=== PATIENT | male | born 1940 | race Caucasian/White ===

== ENCOUNTER 2017-02-20 06:27 | Day surgery (SDC) | payer MEDICARE, OTHER ==
[~2017-02-20] VITALS: Ht 180.3 cm; Wt 88.5 kg
[~2017-02-20 06:27] MED LIST: ALLOPURINOL300 MG PO; AMLODIPINE10 MG OR; ASPIRIN ADULT L81 M1 PO; ASPIRIN81 MG PO; AVELOX400 MG PO; AZITHROMYCIN500 MG PO; CARDIZEM CD240 MG PO; CHERATUSSIN OR; CIPROFLOXACN250 MG PO; COLCHICINE0.6 M2 PO; COREG12.5 MG PO; COREG25 MG PO; COUMADIN1 MG PO; COUMADIN5 MG PO; COUMADIN7.5 MG PO; DIGOXIN0.25 MG PO; DILAUDID 2MG2 MG/TA1 PO; DIOVAN HCT160 MG/25 OR; ELIQUIS5 MG PO; FLOMAX0.4 M1 PO; FLUARIX QUADRIV1 IN2 IM; FLUARIX QUADRIV1 INJ IM; FLUZONE SPLT1 M1 IM; FUROSEMIDE20 MG PO; HYDROCHLOROT25 MG PO; KLOR-CON 1010 ME1 PO; LASIX 20 MG TAB20 MG PO; LASIX 40 MG40 MG/TAB PO; LIPITOR20 MG PO; LIPITOR40 MG OR; LIPITOR80 M1 PO; LIPITOR80 MG PO; LISINOPRIL10 MG PO; LISINOPRIL20 M1 PO; LISINOPRIL20 MG PO; LORTAB 5-325 MG1 TAB PO; LORTAB 7.5 PO; LOSARTAN POT100 MG PO; LOVASTATIN40 MG PO; MEDDOSEPAK PO; METFORMIN1000 MG PO; METO50TA52 PO; METOPROL TAR100 M1 PO; METOPROL TAR25 MG PO; METOPROL TAR50 MG PO; MULTI VITAMIN MENS PO; NITROSTAT0.4 MG SL; PLETAL100 MG PO; PROBENECID500 MG PO; SAW PALMETTO450 MG PO; SERTRALINE HCL100 MG PO; SERTRALINE25 MG OR; SERTRALINE25 MG PO; SERTRALINE50 MG PO; SIMVASTATIN80 MG PO; TAMSULOSIN HCL0.4 MG PO; VITAMIN B-121000 MCG PO; VITAMIN B-122500 MCG SL; VITAMIN C500 M1 PO; WARFARIN1 MG; WARFARIN5 MG PO; ZINC50 M1 PO; ZITHROMAX250 MG OR; ZOLOFT50 MG PO; ZYRTEC10 MG PO
[2017-02-20] MEDS ORDERED: PYRIDIUM200 MG PO (08:23)
[2017-02-20] MEDS ORDERED: Levaquin PO (08:23)
[2017-02-20] MEDS ORDERED: VESICARE5 M1 PO (08:23)
[2017-02-20] MEDS ORDERED: TRAMADOL HCL50 MG PO (08:23)
[2017-02-20 09:15] VITALS: BP 190/92
== END 2017-02-20 09:00 | disposition home or self-care (01) ==
LOC: ORM 06:27
PROVIDERS: ATTEND Urology
PROC: 0T7D8DZ Dilation of Urethra with Intraluminal Device, Via Natural or Artificial Opening Endoscopic (ICD-10-PCS; principal; 2017-02-20)
DX: N40.1 Benign prostatic hyperplasia with lower urinary tract symptoms (principal); R35.0 Frequency of micturition; R39.14 Feeling of incomplete bladder emptying; R39.12 Poor urinary stream; N32.89 Other specified disorders of bladder; I10 Essential (primary) hypertension; E78.5 Hyperlipidemia, unspecified; I25.10 Atherosclerotic heart disease of native coronary artery without angina pectoris; Z87.440 Personal history of urinary (tract) infections; Z95.1 Presence of aortocoronary bypass graft; Z95.0 Presence of cardiac pacemaker
CPT/HCPCS: J1956; L8699

== ENCOUNTER 2017-11-14 23:08 | Observation (INO) | payer MEDICARE, OTHER ==
[~2017-11-14] VITALS: Ht 177.8 cm; Wt 94.0 kg
[~2017-11-14 23:08] MED LIST changes: +Levaquin PO; +PYRIDIUM200 MG PO; +TRAMADOL HCL50 MG PO; +VESICARE5 M1 PO
--- NOTE | 2017-11-14 23:14 | NUR ---
PT STRAIGHT BACK TO ROOM 11, EKG OBTAINED. PT STATES HE HAS A 30 SEC BOUT OF CHEST PAIN AND JUST WANTED TO GET CHECKED.
[2017-11-14 23:57] LABS: HEMATOCRIT 36.5 % (39.0-50.0); HEMOGLOBIN 12.3 g/dl (14.0-18.0); IMMATURE GRANULOCYTES 0.6 % (0.0-5.0); MEAN CELL VOLUME 114.8 fL CALC (80.0-100.0); MEAN CORPUSCULAR HGB 38.7 pG CALC (26.0-32.0); MEAN CORPUSCULAR HGB CONC 33.7 g/L CALC (32.0-36.0); NEUT# 2.91 thou/uL (1.82-7.42); RED BLOOD COUNT 3.18 mill/uL (4.70-6.10); RED CELL DISTRI WIDTH 13.8 % (11.5-15.5)
[2017-11-15 00:14] LABS: ALBUMIN 4.2 g/dL (3.2-5.0); BILIRUBIN, TOTAL 0.7 mg/dL (0.0-1.4); CREATININE 1.4 mg/dL (0.7-1.3); POTASSIUM 4.7 mmol/l (3.5-5.1); TOTAL PROTEIN 7.3 g/dL (6.3-8.2)
--- NOTE | 2017-11-15 00:15 | NUR ---
PT CONTINUES TO BE PAIN FREE. WAITING ON TEST RESULTS BUT DR LOPES ALREADY INFORMED PT HE WOULD BE STAYING IN HOSPITAL
[2017-11-15 00:24] LABS: INTERNATIONAL NORMALIZED RATIO 1.7 RATIO (0.7-1.3); PROTHROMBIN TIME 19.7 SECONDS (9.0-12.5)
--- NOTE | 2017-11-15 00:35 | NUR ---
PT'S RESULTS ON CHART. STILL NO CHEST PAIN.
--- NOTE | 2017-11-15 02:00 | NUR ---
ORDERS RECIEVED FOR ADMISSION.
[2017-11-15] MEDS ORDERED: WARFARIN2.5 MG PO (03:12)
[2017-11-15] MEDS ORDERED: B/P (03:45)
--- NOTE | 2017-11-15 03:48 | NUR ---
REPORT GIVEN TO LORENA ROLON.
--- NOTE | 2017-11-15 03:58 | NUR ---
Admission Note Report Given to: LORENA ROLON Transported by: X Wheelchair Stretcher Transported with: X Nurse Transporter X Patent IV O2 X Concrete Paving Machine Operator
[2017-11-15 04:00] VITALS: BP 167/91
--- NOTE | 2017-11-15 04:15 | NUR ---
PT ARRIVED TO FLOOR VIA WC ACCOMPANIED BY ED NURSE. PT APPEARS TO BE IN STABLE CONDITION AT THIS TIME. PT DENIES ANY CHEST PAIN/N/V. V/S ARE BEING ASSESSED AND PT ORIENTED TO ROOM, CALL SYSTEM, LIGHTS, TV AND POC. PT ASSESSED, LUNG SOUNDS ARE CLEAR, ABD SOFT NON-TENDER, WEAK PEDAL PULSES BUT PALPABLE, PT REPORTS HAVING FREQUENT FALLS AT WHEN HE GETS UP TO FAST SO HE HAS BEEN INSTRUCTED TO CALL FOR ASSISTANCE BEFORE AMBULATING. PT ASSISTED TO RESTROOM AND BACK TO BED. PT LOCX4. NO S/S OF DISTRESS AT THIS TIME. CALL LIGHT AT SIDE. PT DENIES ANY OTHER NEEDS AND HAS BEEN PROVIDED PO FLUIDS.
--- NOTE | 2017-11-15 07:10 | NUR ---
REPORT RECEIVED FROM LORENA ROLON;PT RESTING IN HIGH FOWLERS POSITION;ALERT AND ORIENTED X4;PT DENIES ANY CURRENT CHEST PAIN OR DISCOMFORTS;RESPIRATIONS EVEN AND UNLABORED ON RA;INTRODUCED SELF TO PT AND POC DISCUSSED;TELE MONITOR IN PLACE;PT ENCOURAGED TO CALL FOR ASSISTANCE IF NEEDED;FALL PRECAUTIONS IN PLACE WITH BED IN THE LOWEST POSITION;CALL LIGHT IN REACH;WILL CONTINUE TO MONITOR
[2017-11-15 09:08] VITALS: BP 129/63; BP 95/47
--- NOTE | 2017-11-15 09:10 | NUR ---
PT RESTING IN SEMI FOWLERS POSITION;VS OBTAINED AND ASSESSMENT COMPLETED;CONFECTIONERY MAKER ISAURO AT BEDSIDE;PT DENIES ANY CURRENT CHEST PAIN OR PRESSURE,PAIN SCALE AND REPORTING EDUCATED;RESPIRATIONS EVEN AND UNLABORED ON RA,CLEAR LUNG SOUNDS NOTED;ABDOMEN SOFT ON PALPATION AND ACTIVE IN ALL 4 QUADRANTS;TELE MONITOR IN PLACE:#22G TO RIGHT HAND,NORMAL SALINE STARTED AT 100ML/HR PER ORDER;OLD SCARS NOTED TO SKIN;PO FLUIDS ENCOURAGED;PT DENIES ANY ADDITIONAL NEEDS;SAFETY PRECAUTIONS REINFORCED;ENCOURAGED TO CALL FOR ASSISTANCE IF NEEDED;FALL PRECAUTIONS IN PLACE WITH CALL LIGHT IN REACH;WILL CONTINUE TO MONITOR
[2017-11-15 11:17] VITALS: BP 115/66
[2017-11-15 11:27] LABS: URINE BILIRUBIN - DIPSTICK NEGATIVE (NEGATIVE); URINE BLOOD DIPSTICK MODERATE (NEGATIVE); URINE COLOR YELLOW; URINE GLUCOSE - DIPSTICK NEGATIVE (NEGATIVE); URINE KETONE NEGATIVE (NEGATIVE); URINE NITRITE - DIPSTICK NEGATIVE (Negative); URINE PH 5.5 (4.5-8.0); URINE PROTEIN - DIPSTICK NEGATIVE (NEG-TRACE); URINE UROBILINOGEN - DIPSTICK 0.2 E.U./dL (0.2)
[2017-11-15 11:31] LABS: URINE CLARITY CLOUDY; URINE LEUK ESTERASE MODERATE (NEGATIVE)
--- NOTE | 2017-11-15 11:45 | NUR ---
PT RESTING IN BED READING A BOOK;PT DENIES ANY CHEST PAIN OR DISCOMFORTS;RESPIRATIONS REMAIN EVEN AND UNLABORED ON RA;TELE MONITOR IN PLACE;IV SITE PATENT INFUSING NS @ 100ML/HR PER ORDER;DISCHARGE DISCUSSED WITH PT AND PT VERBALIZES UNDERSTANDING;ENCOURAGED PT TO CALL FOR ASSISTANCE IF NEEDED;FALL PRECAUTIONS IN PLACE WITH CALL LIGHT IN REACH;WILL CONTINUE TO MONITOR
--- NOTE | 2017-11-15 13:05 | NUR ---
ALL DISCHARGE INFORMATION PROVIDED AT THIS TIME;PT INSTUCTED TO INCREASE PO INTAKE AND FOLLOW UP WITH PCP;ALL QUESTIONS ANSWERED;IV SITE REMOVED WITH CATHETER INTACT;WHEELCHAIR TO BE PROVIDED FOR DISCHARGE;AWAITING TRANSPORTATION HOME;WILL CONTINUE TO MONITOR
[2017-11-15 13:18] LABS: URINE BACTERIA FEW hpf; URINE RBC TNTC RBC/hpf (0-5); URINE SQUAMOUS EPITHELIAL CELL FEW EPI/hpf (0-FEW); URINE WBC TNTC WBC/hpf (0-5)
--- NOTE | 2017-11-15 13:19 | NUR ---
Discharge instructions given. Patient verbalizes understanding of same. Discharged in stable condition via Wheelchair to Home with spouse. All belongings sent with pt.
== END 2017-11-15 13:20 | disposition home or self-care (01) ==
LOC: ED 23:08 → ED-I 11-15 01:00 → ED 11-15 01:57 → MS2 11-15 01:58
PROVIDERS: Emergency Medicine; Nurse Practitioner Family; ADMIT Internal Medicine; ATTEND Internal Medicine
DX: R07.89 Other chest pain (principal); N17.9 Acute kidney failure, unspecified; T50.1X5A Adverse effect of loop [high-ceiling] diuretics, initial encounter; E86.0 Dehydration; D64.9 Anemia, unspecified; I10 Essential (primary) hypertension; E78.5 Hyperlipidemia, unspecified; F32.9 Major depressive disorder, single episode, unspecified; I48.91 Unspecified atrial fibrillation; I73.9 Peripheral vascular disease, unspecified; M10.9 Gout, unspecified; Z95.810 Presence of automatic (implantable) cardiac defibrillator; Z95.828 Presence of other vascular implants and grafts; Z95.1 Presence of aortocoronary bypass graft; Z79.01 Long term (current) use of anticoagulants; Z72.89 Other problems related to lifestyle

== ENCOUNTER 2018-01-07 11:59 | Observation (INO) | payer MEDICARE, OTHER ==
[~2018-01-07] VITALS: Ht 177.8 cm; Wt 50.8 kg
[~2018-01-07 11:59] MED LIST changes: +B/P; +WARFARIN2.5 MG PO
--- NOTE | 2018-01-07 12:11 | NUR ---
PT TRIAGED, RETURNED TO WAITING AREA AND ADVSIED TO NOTIFY NURSE OF ANY CHANGES.
--- NOTE | 2018-01-07 12:20 | NUR ---
Pt ambulated to room # 9 with steady gait accompanied by spouse. Call potts within reach.
--- NOTE | 2018-01-07 13:00 | NUR ---
PT WITH HOB ELEVATED, ALERT AND ORIENTED X 4, MAEW. ABRASIONS NOTED TO FACE, HANDS, AND BILATERAL KNEES.
[2018-01-07 13:21] LABS: HEMATOCRIT 34.3 % (39.0-50.0); HEMOGLOBIN 11.2 g/dl (14.0-18.0); IMMATURE GRANULOCYTES 0.6 % (0.0-5.0); MEAN CELL VOLUME 116.7 fL CALC (80.0-100.0); MEAN CORPUSCULAR HGB 38.1 pG CALC (26.0-32.0); MEAN CORPUSCULAR HGB CONC 32.7 g/L CALC (32.0-36.0); NEUT# 3.46 thou/uL (1.82-7.42); RED BLOOD COUNT 2.94 mill/uL (4.70-6.10); RED CELL DISTRI WIDTH 14.7 % (11.5-15.5)
[2018-01-07 13:44] LABS: ANION GAP 17 (6-22 (CALC)); BUN 16 mg/dL (8-23); BUN/CREATININE RATIO 15 (12-20 (CALC)); CARBON DIOXIDE 23 mmol/l (22-30); CHLORIDE 106 mmol/l (95-108); CREATININE 1.1 mg/dL (0.7-1.3); GFR > 60 ML/MIN (>=60 (CALC)); GFR FOR AFR.AMER. > 60 ML/MIN (>=60 (CALC)); POTASSIUM 4.4 mmol/l (3.5-5.1); SODIUM 141 mmol/l (137-146)
[2018-01-07 13:50] LABS: PROTHROMBIN TIME 33.4 SECONDS (9.0-12.5)
[2018-01-07 13:52] LABS: INTERNATIONAL NORMALIZED RATIO 3.2 RATIO (0.7-1.3)
--- NOTE | 2018-01-07 14:00 | NUR ---
WOUND CARE WITH SOAP AND WARM WATER. PT TOLERATED WELL.
--- NOTE | 2018-01-07 14:15 | NUR ---
DR PICKERING AT BEDSIDE TO DISCUSS PLAN TO ADMIT. PT VERBALIZES UNDERSTANDING. EKG PERFORMED. PT CHANGED INTO GOWN.
--- NOTE | 2018-01-07 15:20 | NUR ---
Admission Note Report Given to: CESAR CARRILLO Transported by: Wheelchair X Stretcher Transported with: X Nurse Transporter X Patent IV O2 X Brigadier
--- NOTE | 2018-01-07 15:29 | NUR ---
PT ARRIVED VIA STRETCHER ACCOMPANIED BY ER STAFF MEMBER;PT AMBULATED WITH A STEADY GAIT TO STANDING SCALE AND BEDSIDE;WT AND VS OBTAINED BY WRITTER,BP ELEVATED AT THIS TIME,WILL MONITOR;PT ALERT AND ORIENTED X4,ORIENTED TO ROOM AND CALL LIGHT SYSTEM;PT REPORTS HE TRIPPED ON A BAG AT THE STORE AND FELL ON HIS FACE;ASSESSMENT COMPLETED;PT DENIES ANY CURRENT PAIN OR DISCOMFORTS,PAIN SCALE AND REPORTING EDUCATED;RESPIRATIONS EVEN AND UNLABORED ON RA,CLEAR LUNG SOUNDS NOTED;ABDOMEN DISTENDED/SOFT ON PALPATION AND ACTIVE IN ALL 4 QUADRANTS,LAST BM 01/06/18;WEAK PEDAL PULSES,TRACE EDEMA NOTED;ENCOURAGED ELEVATION;TELE MONITOR IN PLACE;MULTIPLE ABRASIONS NOTED TO FACE,RIGHT SHOULDER,RIGHT KNEE AND LEFT INDEX FINGER;PHOTOGRAPHS OBTAINED AND PLACED IN CHART;#22G TO RIGHT HAND FLUSHED AND PATENT,SITE APPEARS HEALTHY AND FLUIDS STARTED @ 75ML/HR PER ORDER;ALL SAFETY PRECAUTIONS REINFORCED WITH BED IN THE LOWEST POSITION AND CALL LIGHT IN REACH;WILL CONTINUE TO MONITOR
[2018-01-07 15:36] VITALS: BP 192/95
[2018-01-07] MEDS ORDERED: LISINOPRIL20 MG PO (16:18)
--- NOTE | 2018-01-07 16:30 | NUR ---
PT TRANSFERRED TO [facility] VIA WHEELCHAIR IN STABLE CONDITION ACCOMPANIED BY SHELDON SIDHU
--- NOTE | 2018-01-07 16:42 | NUR ---
PT ARRIVED TO BACK TO FLOOR VIA WHEELCHAIR IN STABLE CONDITON
[2018-01-07 17:00] VITALS: BP 195/95
--- NOTE | 2018-01-07 17:08 | NUR ---
PT BP RE-CHECK 195/95, NOTIFIED AND NEW ORDER RECEIVED.WILL CONTINUE TO MONITOR
--- NOTE | 2018-01-07 17:20 | NUR ---
PT MEDICATED WITH CLONDINE 0.2MG PO FOR BP 195/95 HR 60,WILL CONTINUE TO MONITOR FOR EFFECTIVENESS
--- NOTE | 2018-01-07 17:22 | NUR ---
AT BEDSIDE DISCUSSING POC.
[2018-01-07 18:17] VITALS: BP 160/83
--- NOTE | 2018-01-07 18:17 | NUR ---
BP RE-CHECK 160/83 HR 60
--- NOTE | 2018-01-07 19:00 | NUR ---
BEDSIDE REPORT RECEIVED FROM BEATRIZ AMOS. PT SITTING UP IN BED WATCHING TV; C/O MILD PAIN TO RIGHT FACE AND HEAD THAT HE STATES IS MANAGEABLE. RESPIRATIONS EVEN AND UNLABORED ON ROOM AIR. NEURO CHECK WNL. PLAN OF CARE DISCUSSED. PT ENCOURAGE TO VERBALIZE CONCERNS. STATES UNDERSTANDING. SAFETY MEASURES IN PLACE. CALL LIGHT WITHIN REACH.
[2018-01-07 19:44] VITALS: BP 142/74
[2018-01-07 23:50] VITALS: BP 143/81
--- NOTE | 2018-01-08 | NUR ---
PT ASLEEP AT THIS TIME WITH NO SIGNS OF DISTRESS. AWAKENS WITH VERBAL STIMULI; NEURO CHECK WNL; ORIENTED X 3. TELE ON. IV FLUIDS INFUSING WITHOUT DIFFICULTY; IV SITE APPEARS HEALTHY. ONE PERSON ASSIST TO BATHROOM; AMBULATORY. NO REQUESTS OR CONCERNS AT THIS TIME. SAFETY MEASURES IN PLACE. CALL LIGHT WITHIN REACH.
[2018-01-08 04:00] VITALS: BP 147/81
--- NOTE | 2018-01-08 04:13 | NUR ---
NO ACUTE CHANGES THROUGHOUT THE NIGHT. SAFETY MEASURES IN PLACE. CALL LIGHT WITHIN REACH.
[2018-01-08 05:22] LABS: HEMOGLOBIN 11.2 g/dl (14.0-18.0); IMMATURE GRANULOCYTES 0.4 % (0.0-5.0); MEAN CELL VOLUME 117.2 fL CALC (80.0-100.0); MEAN CORPUSCULAR HGB 38.6 pG CALC (26.0-32.0); MEAN CORPUSCULAR HGB CONC 32.9 g/L CALC (32.0-36.0); NEUT# 3.41 thou/uL (1.82-7.42); RED BLOOD COUNT 2.9 mill/uL (4.70-6.10); RED CELL DISTRI WIDTH 14.6 % (11.5-15.5)
[2018-01-08 05:31] LABS: INTERNATIONAL NORMALIZED RATIO 3.7 RATIO (0.7-1.3); PROTHROMBIN TIME 38.6 SECONDS (9.0-12.5)
[2018-01-08 05:36] LABS: ALKALINE PHOSPHATASE 56 u/l (38-126); ANION GAP 11 (6-22 (CALC)); BILIRUBIN, TOTAL 0.9 mg/dL (0.0-1.4); BUN 19 mg/dL (8-23); BUN/CREATININE RATIO 19 (12-20 (CALC)); CARBON DIOXIDE 29 mmol/l (22-30); CHLORIDE 104 mmol/l (95-108); GFR > 60 ML/MIN (>=60 (CALC)); GFR FOR AFR.AMER. > 60 ML/MIN (>=60 (CALC)); POTASSIUM 4.4 mmol/l (3.5-5.1); SGOT/AST 47 u/l (19-48); SODIUM 140 mmol/l (137-146)
[2018-01-08 05:37] LABS: ALBUMIN 3.3 g/dL (3.2-5.0); TOTAL PROTEIN 5.8 g/dL (6.3-8.2)
--- NOTE | 2018-01-08 07:00 | NUR ---
REPORT RECEIVED FROM LORENA MAHMOOD;PT APPEARS TO BE SLEEPING IN HIGH FOWLERS POSITION;NO S/S OF DISTRESS NOTED;RESPIRATIONS EVEN AND UNLABORED ON RA;TELE MONITOR IN PLACE;IV FLUIDS CONTINUE TO INFUSE WITH EASE TO RIGHT HAND;FALL PRECAUTIONS IN PLACE WITH BED IN THE LOWEST POSITION AND CALL LIGHT IN REACH;WILL CONTINUE TO MONITOR
[2018-01-08 08:20] VITALS: BP 168/88
--- NOTE | 2018-01-08 08:20 | NUR ---
PT RESTING IN BED WATCHING TV;VS OBTAINED AND ASSESSMENT COMPLETED;PT REPORTS ACHING TO FACE RATING 1/10 ON THE PAIN SCALE AND REQUESTS PAIN MEDICATION;PT MEDICATED WITH PRN TYLENOL 650MG PO,WILL MONITOR FOR EFFECT;RESPIRATIONS EVEN AND UNLABORED ON RA,CLEAR LUNG SOUNDS;ABDOMEN DISTENDED/SOFT ON PALPATION AND ACTIVE IN ALL 4 QUADRANTS;WEAK PEDAL PULSES;#22G TO RIGHT HAND INFUSING D5 1/2 NS @ 75ML/HR,SITE APPEARS HEALTHY;TELE MONITOR IN PLACE;ABRASIONS NOTED TO FACE,RIGHT SHOULDER, AND RIGHT KNEE.STICHES NOTED TO RIGHT EYE AND NOSE WITH SLIGHT EDEMA;URINAL EMPTIED OF 100CC OF CLEAR/YELLOW URINE;PT DENIES ANY CURRENT NEEDS AT THIS TIME;SAFETY PRECAUTIONS REINFORCED WITH FALL PRECAUTIONS IN PLACE AND BED IN THE LOWEST POSITION;CALL LIGHT IN REACH;WILL CONTINUE TO MONITOR
[2018-01-08 08:22] VITALS: BP 168/88
--- NOTE | 2018-01-08 09:15 | NUR ---
AT BEDSIDE DISCUSSING POC INCLUDING D/C PLAN.
--- NOTE | 2018-01-08 09:50 | NUR ---
ALL DISCHARGE INSTRUCTIONS DISCUSSED AT THIS TIME;APPT MADE FOR 'S OFFICE ON Sunday01/10/18 @ 0800;CATSCAN & XRAY DISKS PROVIDED TO PT TO TAKE TO APPT.IV SITE REMOVED WITH CATHETER INTACT;PT DENIES ANY ADDITIONAL NEEDS AT THIS TIME;SPOUSE AT BEDSIDE,WHEELCHAIR TO BE PROVIDED FOR DISCHARGE HOME.
--- NOTE | 2018-01-08 10:27 | NUR ---
PER SCHEDULED APPT SET UP FOR PT TO SEE NEXT WEEK ON Sunday01/17/18 @ 11AM. CURRENT LAB WORK FAXED TO OFFICE.
--- NOTE | 2018-01-08 10:42 | NUR ---
Discharge instructions given. Patient verbalizes understanding of same. Discharged in stable condition via Wheelchair to Home with spouse. All belongings sent with pt.
== END 2018-01-08 10:44 | disposition home or self-care (01) ==
LOC: ED 11:59 → ED-I 14:00 → ED 14:10 → MS2 14:11
PROVIDERS: Family Medicine; ADMIT Internal Medicine Geriatric Medicine; ATTEND Internal Medicine Geriatric Medicine
PROC: 0HQ1XZZ Repair Face Skin, External Approach (ICD-10-PCS; principal; 2018-01-07)
DX: S00.83XA Contusion of other part of head, initial encounter (principal); S02.2XXA Fracture of nasal bones, initial encounter for closed fracture; S01.111A Laceration without foreign body of right eyelid and periocular area, initial encounter; S01.21XA Laceration without foreign body of nose, initial encounter; S00.81XA Abrasion of other part of head, initial encounter; I48.2 Chronic atrial fibrillation; I10 Essential (primary) hypertension; I25.10 Atherosclerotic heart disease of native coronary artery without angina pectoris; E78.5 Hyperlipidemia, unspecified; M10.9 Gout, unspecified; F32.9 Major depressive disorder, single episode, unspecified; W01.0XXA Fall on same level from slipping, tripping and stumbling without subsequent striking against object, initial encounter; Y93.89 Activity, other specified; Z79.01 Long term (current) use of anticoagulants; Z95.1 Presence of aortocoronary bypass graft; Z95.810 Presence of automatic (implantable) cardiac defibrillator; Z95.2 Presence of prosthetic heart valve

== ENCOUNTER 2018-12-16 12:04 | Inpatient (IN) | payer MEDICARE, OTHER ==
[2018-12-16] VITALS (14 sets, daily range): BP systolic 92–126; BP diastolic 46–79
[~2018-12-16] VITALS: Ht 177.8 cm; Wt 97.7 kg
[2018-12-16 14:02] LABS: HEMOGLOBIN 9.3 g/dl (14.0-18.0); IMMATURE GRANULOCYTES 1.5 % (0.0-5.0); MEAN CELL VOLUME 116.9 fL CALC (80.0-100.0); MEAN CORPUSCULAR HGB 37.5 pG CALC (26.0-32.0); MEAN CORPUSCULAR HGB CONC 32.1 g/L CALC (32.0-36.0); NEUT# 6.67 thou/uL (1.82-7.42); RED BLOOD COUNT 2.48 mill/uL (4.70-6.10); RED CELL DISTRI WIDTH 13.9 % (11.5-15.5)
[2018-12-16 14:32] LABS: ALBUMIN 3.8 g/dL (3.2-5.0); CREATININE 1.4 mg/dL (0.7-1.3); POTASSIUM 5.1 mmol/l (3.5-5.1); TOTAL PROTEIN 6.6 g/dL (6.3-8.2)
[2018-12-16 14:38] LABS: BILIRUBIN, TOTAL 1.3 mg/dL (0.0-1.4)
[2018-12-16 15:22] LABS: INTERNATIONAL NORMALIZED RATIO > 29.6 RATIO (0.7-1.3); PROTHROMBIN TIME > 300.0 SECONDS (9.0-12.5)
[2018-12-16] MEDS ORDERED: WARFARIN2.5 MG PO (17:37)
[2018-12-16] MEDS ORDERED: PROPRANOLOL HCL80 MG PO (17:42)
[2018-12-16] MEDS ORDERED: D32000 UNI1 PO (17:42)
[2018-12-16] MEDS ORDERED: SERTRALINE50 MG PO (17:42)
[2018-12-16 22:33] LABS: URINE BLOOD DIPSTICK LARGE (NEGATIVE); URINE COLOR YELLOW; URINE GLUCOSE - DIPSTICK NEGATIVE (NEGATIVE); URINE KETONE 15 mg/dL (NEGATIVE); URINE LEUK ESTERASE TRACE (NEGATIVE); URINE PH 5.5 (4.5-8.0); URINE PROTEIN - DIPSTICK TRACE mg/dL (NEG-TRACE); URINE SPECIFIC GRAVITY 1.025; URINE UROBILINOGEN - DIPSTICK 0.2 E.U./dL (0.2)
[2018-12-16 22:45] LABS: URINE BILIRUBIN - DIPSTICK NEGATIVE (NEGATIVE)
[2018-12-16 23:07] LABS: URINE NITRITE - DIPSTICK NEGATIVE (Negative)
[2018-12-16 23:08] LABS: URINE EPITHELIAL CELLS MODERATE EPI/hpf (0-FEW); URINE RBC >100 RBC/hpf (0-5); URINE WBC >100 WBC/hpf (0-5)
[2018-12-16 23:09] LABS: URINE BACTERIA MODERATE hpf
[2018-12-17] VITALS (25 sets, daily range): BP systolic 90–167; BP diastolic 56–87
[2018-12-17 00:14] LABS: PROTHROMBIN TIME 15.9 SECONDS (9.0-12.5)
[2018-12-17 00:15] LABS: INTERNATIONAL NORMALIZED RATIO 1.6 RATIO (0.7-1.3)
[2018-12-17 05:05] LABS: IMMATURE GRANULOCYTES 1.1 % (0.0-5.0); MEAN CELL VOLUME 116.8 fL CALC (80.0-100.0); MEAN CORPUSCULAR HGB 38.3 pG CALC (26.0-32.0); MEAN CORPUSCULAR HGB CONC 32.8 g/L CALC (32.0-36.0); NEUT# 2.78 thou/uL (1.82-7.42); RED BLOOD COUNT 1.67 mill/uL (4.70-6.10); RED CELL DISTRI WIDTH 13.9 % (11.5-15.5)
[2018-12-17 05:17] LABS: HEMOGLOBIN 6.4 g/dl (14.0-18.0)
[2018-12-17 05:18] LABS: HEMATOCRIT 19.5 % (39.0-50.0)
[2018-12-17 05:22] LABS: ALKALINE PHOSPHATASE 71 u/l (38-126); BILIRUBIN, TOTAL 1.2 mg/dL (0.0-1.4); BUN 35 mg/dL (8-23); BUN/CREATININE RATIO 30 (12-20 (CALC)); CHLORIDE 106 mmol/l (95-108); CREATININE 1.2 mg/dL (0.7-1.3); GFR 58 ML/MIN (>=60 (CALC)); GFR FOR AFR.AMER. > 60 ML/MIN (>=60 (CALC)); SGOT/AST 77 u/l (19-48); SODIUM 139 mmol/l (137-146); TOTAL PROTEIN 5.5 g/dL (6.3-8.2)
[2018-12-17 05:24] LABS: ALBUMIN 2.9 g/dL (3.2-5.0); ANION GAP 14 (6-22 (CALC)); CARBON DIOXIDE 23 mmol/l (22-30)
[2018-12-17] MEDS ORDERED: LIPITOR80 M1 PO (12:56)
[2018-12-17] MEDS ORDERED: D3 ADULT1000 UNIT PO (12:58)
[2018-12-17] MEDS ORDERED: HYDRALAZINE50 MG PO (13:01)
[2018-12-17 16:43] LABS: IMMATURE GRANULOCYTES 1.9 % (0.0-5.0); MEAN CORPUSCULAR HGB 35.4 pG CALC (26.0-32.0); MEAN CORPUSCULAR HGB CONC 32.9 g/L CALC (32.0-36.0); NEUT# 3.74 thou/uL (1.82-7.42); RED BLOOD COUNT 2.71 mill/uL (4.70-6.10)
[2018-12-17 16:44] LABS: HEMATOCRIT 29.2 % (39.0-50.0); HEMOGLOBIN 9.6 g/dl (14.0-18.0); MEAN CELL VOLUME 107.7 fL CALC (80.0-100.0)
[2018-12-17 17:17] LABS: ANION GAP 12 (6-22 (CALC)); BUN 28 mg/dL (8-23); BUN/CREATININE RATIO 28 (12-20 (CALC)); CARBON DIOXIDE 25 mmol/l (22-30); CHLORIDE 107 mmol/l (95-108); GFR > 60 ML/MIN (>=60 (CALC)); GFR FOR AFR.AMER. > 60 ML/MIN (>=60 (CALC)); POTASSIUM 3.5 mmol/l (3.5-5.1); SODIUM 140 mmol/l (137-146)
[2018-12-18] VITALS (21 sets, daily range): BP systolic 122–190; BP diastolic 60–96
[2018-12-18 05:34] LABS: HEMATOCRIT 27.5 % (39.0-50.0); HEMOGLOBIN 9.1 g/dl (14.0-18.0); IMMATURE GRANULOCYTES 1.6 % (0.0-5.0); MEAN CELL VOLUME 107.8 fL CALC (80.0-100.0); MEAN CORPUSCULAR HGB 35.7 pG CALC (26.0-32.0); MEAN CORPUSCULAR HGB CONC 33.1 g/L CALC (32.0-36.0); NEUT# 3.4 thou/uL (1.82-7.42); RED BLOOD COUNT 2.55 mill/uL (4.70-6.10); RED CELL DISTRI WIDTH 19.8 % (11.5-15.5)
[2018-12-18 05:47] LABS: ALBUMIN 2.9 g/dL (3.2-5.0); ALKALINE PHOSPHATASE 78 u/l (38-126); ANION GAP 12 (6-22 (CALC)); BILIRUBIN, TOTAL 1.6 mg/dL (0.0-1.4); BUN 22 mg/dL (8-23); BUN/CREATININE RATIO 24 (12-20 (CALC)); CARBON DIOXIDE 23 mmol/l (22-30); CHLORIDE 107 mmol/l (95-108); CREATININE 0.9 mg/dL (0.7-1.3); GFR > 60 ML/MIN (>=60 (CALC)); GFR FOR AFR.AMER. > 60 ML/MIN (>=60 (CALC)); POTASSIUM 3.6 mmol/l (3.5-5.1); SGOT/AST 70 u/l (19-48); SODIUM 138 mmol/l (137-146); TOTAL PROTEIN 5.4 g/dL (6.3-8.2)
== END 2018-12-18 21:28 | DRG 813 ==
LOC: ED 12:04 → ED-I 15:22 → ED 16:02 → ICU 16:03
PROVIDERS: Emergency Medicine; ADMIT Internal Medicine Geriatric Medicine; ATTEND Internal Medicine Geriatric Medicine
PROC: 30233K1 Transfusion of Nonautologous Frozen Plasma into Peripheral Vein, Percutaneous Approach (ICD-10-PCS; principal; 2018-12-16)
PROC: 30233K1 Transfusion of Nonautologous Frozen Plasma into Peripheral Vein, Percutaneous Approach (ICD-10-PCS; 2018-12-16)
PROC: 30233K1 Transfusion of Nonautologous Frozen Plasma into Peripheral Vein, Percutaneous Approach (ICD-10-PCS; 2018-12-16)
PROC: 30233K1 Transfusion of Nonautologous Frozen Plasma into Peripheral Vein, Percutaneous Approach (ICD-10-PCS; 2018-12-16)
PROC: 30233N1 Transfusion of Nonautologous Red Blood Cells into Peripheral Vein, Percutaneous Approach (ICD-10-PCS; 2018-12-17)
PROC: 30233N1 Transfusion of Nonautologous Red Blood Cells into Peripheral Vein, Percutaneous Approach (ICD-10-PCS; 2018-12-17)
PROC: 30233N1 Transfusion of Nonautologous Red Blood Cells into Peripheral Vein, Percutaneous Approach (ICD-10-PCS; 2018-12-17)
DX: D68.32 Hemorrhagic disorder due to extrinsic circulating anticoagulants (principal); K92.1 Melena; T45.515A Adverse effect of anticoagulants, initial encounter; D50.0 Iron deficiency anemia secondary to blood loss (chronic); I48.2 Chronic atrial fibrillation; I11.0 Hypertensive heart disease with heart failure; I50.9 Heart failure, unspecified; I25.10 Atherosclerotic heart disease of native coronary artery without angina pectoris; E78.5 Hyperlipidemia, unspecified; M10.9 Gout, unspecified; M19.90 Unspecified osteoarthritis, unspecified site; Z86.73 Personal history of transient ischemic attack (TIA), and cerebral infarction without residual deficits; Z95.1 Presence of aortocoronary bypass graft; Z95.810 Presence of automatic (implantable) cardiac defibrillator; Z79.01 Long term (current) use of anticoagulants; Z95.2 Presence of prosthetic heart valve
CPT/HCPCS: P9016; S0164

== ENCOUNTER 2020-03-08 19:22 | Observation (INO) | payer MEDICARE, OTHER ==
[~2020-03-08] VITALS: Ht 177.8 cm; Wt 82.3 kg
[~2020-03-08 19:22] MED LIST changes: +D3 ADULT1000 UNIT PO; +D32000 UNI1 PO; +HYDRALAZINE50 MG PO; +PROPRANOLOL HCL80 MG PO
--- NOTE | 2020-03-08 19:22 | NUR ---
BY EMS TO [facility] AT BEDSIDE. STROKE ALERT CALLED. TO CT.
[2020-03-08 19:51] LABS: IMMATURE GRANULOCYTES 0.7 % (0.0-5.0); MEAN CELL VOLUME 114.2 fL CALC (80.0-100.0); MEAN CORPUSCULAR HGB 36.5 pG CALC (26.0-32.0); NEUT# 4.97 thou/uL (1.82-7.42); RED BLOOD COUNT 3.23 mill/uL (4.70-6.10); RED CELL DISTRI WIDTH 12.4 % (11.5-15.5)
[2020-03-08 19:52] LABS: HEMATOCRIT 36.9 % (39.0-50.0); HEMOGLOBIN 11.8 g/dl (14.0-18.0)
[2020-03-08 20:05] LABS: ACT PARTIAL THROMBO TIME 28.3 SECONDS (20.0-32.5); CREATININE 1.7 mg/dL (0.7-1.3); INTERNATIONAL NORMALIZED RATIO 1.6 RATIO (0.7-1.3); PROTHROMBIN TIME 15.4 SECONDS (9.0-12.5)
--- NOTE | 2020-03-08 20:10 | NUR ---
LEFT LEG VASTLY IMPROVED.
[2020-03-08 20:11] LABS: ALBUMIN 4.3 g/dL (3.2-5.0); BILIRUBIN, TOTAL 0.7 mg/dL (0.0-1.4); MAGNESIUM 2.1 mg/dL (1.6-2.3); POTASSIUM 4.8 mmol/l (3.5-5.1); TOTAL PROTEIN 7.9 g/dL (6.3-8.2)
[2020-03-08 20:34] LABS: TSH, 3RD GENERATION 7.1 uIU/mL (0.47 - 4.68)
--- NOTE | 2020-03-08 21:00 | NUR ---
RESTING QUIETLY WATCHING TV.
[2020-03-08] MEDS ORDERED: WARFARIN5 MG PO (21:34)
[2020-03-08] MEDS ORDERED: WARFARIN SODIU2.5 M1 PO (21:35)
[2020-03-08] MEDS ORDERED: ENTRESTO 24-261 TAB PO (21:38)
--- NOTE | 2020-03-08 22:00 | NUR ---
PT STATES LEFT LEG BACK TO NORMAL.
--- NOTE | 2020-03-08 23:00 | NUR ---
RESTING COMFORTABLY AWAITING DISPO.
--- NOTE | 2020-03-08 23:30 | NUR ---
Admission Note Report Given to: LORENA ROLON Transported by: X Wheelchair Stretcher Transported with: X Nurse Transporter X Patent IV O2 X Clinical Pharmacy Manager Location: ICU X [facility]
--- NOTE | 2020-03-09 | NUR ---
UP TO BSC. CLEANED OF LARGE SOFT STOOL.
--- NOTE | 2020-03-09 00:39 | NUR ---
TRANSPORTED TO FLOOR.
--- NOTE | 2020-03-09 00:55 | NUR ---
PT ARRIVED TO MED SURG UNIT VIA WC ACCOMPANIED BY ED NURSE. UPON STANDING TO GET INTO THE BED HE PROCEEDED TO HAVE LOOSE RUNNY STOOL ON HIMSELF AND THE FLOOR. PT WAS CLEANED OF INCONTINENT STOOL. PT REPORTS HAVING HAD LOOSE STOOL FOR THE PAST WEEK. PT APPEARS EXTREMELY WEAK AND IS UNABLE TO STAND ALONE. PT IS LAYING ACROSS THE BED UNABLE TO MOVE HIMSELF. PT BOOSTED IN THE BED. HE IS ASKING FOR WATER AND IMMEDIATELY ASKING FOR SLEEPING AND PAIN PILL. NO ORDERS FOR THIS, WILL NOTIFY PHYSICIAN.
--- NOTE | 2020-03-09 01:04 | NUR ---
Admission Note Report Given to: LORENA ROLON Transported by: X Wheelchair Stretcher Transported with: X Nurse Transporter X Patent IV O2 X Engraver Signature Location: ICU X MS[facility]
[2020-03-09 01:08] LABS: URINE BILIRUBIN - DIPSTICK NEGATIVE (NEGATIVE); URINE COLOR YELLOW; URINE GLUCOSE - DIPSTICK NEGATIVE (NEGATIVE); URINE KETONE NEGATIVE (NEGATIVE); URINE NITRITE - DIPSTICK NEGATIVE (Negative); URINE PH 5.5 (4.5-8.0); URINE PROTEIN - DIPSTICK NEGATIVE (NEG-TRACE); URINE UROBILINOGEN - DIPSTICK 0.2 E.U./dL (0.2)
[2020-03-09 01:10] VITALS: BP 122/59
--- NOTE | 2020-03-09 01:10 | NUR ---
PT HAS BEEN ORIENTED TO ROOM, CALL SYSTEM, LIGHTS BED AND TV. PT ASSESSED, HE IS UNABLE TO LIFT EITHER LEG, NO MOVEMENT ON HIS OWN. HE DOES REPORT HAVING FEELING, BUT WEAKNESS TO BOTH LEGS. STRONG EQUAL SEED POTATO ARRANGER, PUPILS 2, ROUND REACTIVE AND EQUAL.
[2020-03-09 01:11] LABS: URINE BLOOD DIPSTICK NEGATIVE (NEGATIVE); URINE LEUK ESTERASE SMALL (NEGATIVE)
[2020-03-09 01:19] LABS: URINE EPITHELIAL CELLS MODERATE EPI/hpf (0-FEW); URINE WBC >100 WBC/hpf (0-5)
[2020-03-09 01:20] LABS: URINE BACTERIA MODERATE hpf
--- NOTE | 2020-03-09 01:39 | NUR ---
ADMISSION COMPLETED AT THIS TIME. PT DENIES TAKING ANY PAIN MEDICATION REGULARLY AT HOME, REPORTS 3-4 GLASSES OF WINE PER DAY. PT REPORTS PAIN IN BACK. PREVIOUSLY WHEN I WAS IN THE ROOM HE REPORTED PAIN IN HIS LEGS, HE NOW DENIES LEG PAIN AND REPORTS BACK PAIN. ASSISTED PT REPOSITION IN THE BED FOR COMFORT MEASURES, OFFERED WARM PACK/REFUSED.
[2020-03-09 04:08] VITALS: BP 96/55
--- NOTE | 2020-03-09 04:08 | NUR ---
AIDES IN WITH PT AT THIS TIME.
[2020-03-09 05:06] LABS: C-REACTIVE PROTEIN 1.2 mg/dL (0-0.9); CHOLESTEROL HDL RATIO 6.2 (<4.4 (CALC))
--- NOTE | 2020-03-09 06:20 | NUR ---
ENTERED ROOM TO ASSESS, PT DENIED ANY NEEDS. PT LIFTED LEFT LEG IN THE AIR SHAKING IT, SHOWING MOVEMENT ABILITY. I ATTEMPTED TO DO RIGHT LEG NEURO CHECK, HE WAS UNABLE TO LIFT, WOULD NOT ALLOW ME TO LIFT, HE STATED IT HURTS IN HIS THIGH/POINTING TO HIS THIGH. IF HE LIFTS IT, BUT CONFIRMED FEELING IN RLE
--- NOTE | 2020-03-09 06:58 | NUR ---
REPORT RECEIVED FROM LORENA ROLON. PT RESTING IN BED NO S/S OF DISTRESS AT THIS TIME. SAFETY PRECAUTIONS IN PLACE. WILL CONTINUE TO MONITOR.
[2020-03-09 09:08] VITALS: BP 93/52
--- NOTE | 2020-03-09 09:08 | NUR ---
PT RESTING IN BED, ALERT AND ORIENTED. RESPIRATIONS ARE EVEN AND UNLABORED ON O2 @ 2L VIA NC. PEDAL PULSES ARE WEAK. PT REPORTS MILD DISCOMFORT IN HIS RIGHT LEG. SAFETY PRECAUTIONS IN PLACE. WILL CONTINUE TO MONITOR.
[2020-03-09 11:00] VITALS: BP 104/70
--- NOTE | 2020-03-09 12:30 | NUR ---
PT RESTING IN BED, WITH EYES CLOSED. NO S/S OF DISTRESS AT THIS TIME. SAFETY PRECAUTIONS IN PLACE. WILL CONTINUE TO MONITOR.
[2020-03-09 13:06] LABS: HEMATOCRIT 34.6 % (39.0-50.0); HEMOGLOBIN 11.1 g/dl (14.0-18.0); MEAN CELL VOLUME 113.8 fL CALC (80.0-100.0); MEAN CORPUSCULAR HGB 36.5 pG CALC (26.0-32.0); MEAN CORPUSCULAR HGB CONC 32.1 g/dL CAL (32.0-36.0); RED BLOOD COUNT 3.04 mill/uL (4.70-6.10); RED CELL DISTRI WIDTH 12.7 % (11.5-15.5)
[2020-03-09 13:16] LABS: ALBUMIN 3.3 g/dL (3.2-5.0); CREATININE 1.4 mg/dL (0.7-1.3); POTASSIUM 5.1 mmol/l (3.5-5.1); TOTAL PROTEIN 6.1 g/dL (6.3-8.2)
[2020-03-09 13:32] LABS: INTERNATIONAL NORMALIZED RATIO 1.9 RATIO (0.7-1.3); PROTHROMBIN TIME 18.7 SECONDS (9.0-12.5)
[2020-03-09 16:00] VITALS: BP 97/51
--- NOTE | 2020-03-09 16:25 | NUR ---
PT RESTING IN BED, PT PROVIDED WITH THE BED BAUTISTA PER REQUEST. PT WANT TO PUT HIMSELF ON THE BED BAUTISTA, PT ENCOURAGED TO CALL FOR ASSISTANCE WHEN FINISHED. CALL LIGHT WITH IN REACH WILL CONTINUE TO MONITOR.
[2020-03-09 19:39] VITALS: BP 99/57
--- NOTE | 2020-03-09 20:10 | NUR ---
PT MEDICATED ORDERS PROVIDE FOR PAIN 6/10 ON PAIN SCALE AND W/PM MEDICATIONS. ASSESSMENT COMPLETED AT THIS TIME. POC AND MED SCHEDULE DISCUSSED. PT DENIES ANY OTHER NEEDS AT THIS TIME. I ENCOURAGED HER TO CALL NEEDS ARISE. CALL LIGHT W/IN REACH.
--- NOTE | 2020-03-09 20:47 | NUR ---
PT MEDICATED ORDERS PROVIDE. ASSESSMENT COMPLETED AT THIS TIME. WEAKNESS TO RLE WITH WEAK PEDAL PULSE. GOOD MOVEMENT IN LLE. MATERIALS HANDLER ARE EQUAL AND STRONG. FACIAL SYMETRY INTACT. CLEAR SPEECH AND APPROPRIATE.
[2020-03-10] VITALS: BP 111/59
--- NOTE | 2020-03-10 01:30 | NUR ---
PT SLEEPING AT THIS TIME. NO S/O DISTRESS NOTED. CALL LIGHT W/IN REACH.
[2020-03-10 04:00] VITALS: BP 124/57
--- NOTE | 2020-03-10 04:50 | NUR ---
PT WAS SLEEPING, AWOKE TO OUR ENTERING ROOM. DENIES ANY NEEDS AT THIS TIME. CALL LIGHT AT BEDSIDE.
[2020-03-10 06:57] LABS: INTERNATIONAL NORMALIZED RATIO 1.8 RATIO (0.7-1.3); PROTHROMBIN TIME 17.5 SECONDS (9.0-12.5)
--- NOTE | 2020-03-10 07:10 | NUR ---
REPORT RECEIVED FROM LORENA ROLON. PT RESTING IN BED. NO S/S OF DISTRESS AT THIS TIME. SAFETY PRECAUTIONS IN PLACE. WILL CONTINUE TO MONITOR.
[2020-03-10 08:17] VITALS: BP 135/71
--- NOTE | 2020-03-10 08:17 | NUR ---
PT SITTING UP IN BED, ALERT AND ORIENTED. RESPIRATIONS ARE EVEN AND UNLABORED ON O2 @ 2L VIA NC. LUNGS SOUND CLEAR. PEDAL PULSES ARE WEAK. PT DENIES ANY PAIN OR DISCOMFORT AT THIS TIME. SAFETY PRECAUTIONS IN PLACE. WILL CONTINUE TO MONTIOR.
[2020-03-10 12:00] VITALS: BP 133/72
--- NOTE | 2020-03-10 12:00 | NUR ---
PT RESTING IN BED. NO S/S OF DISTRESS AT THIS TIME. SAFETY PRECAUTIONS IN PLACE. WILL CONTINUE TO MONITOR.
[2020-03-10] MEDS ORDERED: ZPAK PO (12:01)
[2020-03-10] MEDS ORDERED: OMNICEF300 MG PO (12:01)
[2020-03-10] MEDS ORDERED: LEVOTHYROXIN25 MC1 PO (12:01)
--- NOTE | 2020-03-10 14:34 | NUR ---
PT. NOTE Patient supine as entered room. Agreed to participate in therapy session. Supine>sit independant, static seated balance noted loss of balance as he leans back and reaches out. SIT>stand MAX A, x 5 (FAMILY RESOURCE COORDINATOR Jeanette) washed patient as we execute sit>stand. Stand>sit MOD A Vc for correct hand placement as he descends to a seated position. Sit>supine MAX A w/ right lower extremity to clear bed side. Scooting independant. Tray table and call potts by patient side as exited room. AMPAC 6 score 10
--- NOTE | 2020-03-10 14:54 | NUR ---
Pt was instructed in performing selfcare including oral hygiene and grooming however pt refused stating he did not need any help with task and was able to perform on his own.
--- NOTE | 2020-03-10 15:40 | NUR ---
PT PROVIDED WITH DISCHARGE PACKET. PT DENIES ANY QUESTIONS OR CONCERNS AT THIS TIME. #18 LAC REMOVED CATHETER INTACT. SAFETY PRECAUTIONS IN PLACE. WILL CONTINUE TO MONITOR.
--- NOTE | 2020-03-10 15:45 | NUR ---
Discharge instructions given. Patient verbalizes understanding of same. Discharged in stable condition via Wheelchair to [facility] with family. All belongings sent with pt.
--- NOTE | 2020-03-10 16:07 | NUR ---
REPORT CALLED TO KAREN
== END 2020-03-10 15:45 ==
LOC: EDPENDDISDT → EDPENDDISTM → ED 19:22 → ED-I 20:50 → ED 21:10 → MS2 21:11
PROVIDERS: Nurse Practitioner Family; ADMIT Internal Medicine; ATTEND Internal Medicine
DX: G45.9 Transient cerebral ischemic attack, unspecified (principal); N17.9 Acute kidney failure, unspecified; I48.91 Unspecified atrial fibrillation; I12.9 Hypertensive chronic kidney disease with stage 1 through stage 4 chronic kidney disease, or unspecified chronic kidney disease; N18.9 Chronic kidney disease, unspecified; E03.9 Hypothyroidism, unspecified; E86.0 Dehydration; J98.11 Atelectasis; D72.829 Elevated white blood cell count, unspecified; I25.10 Atherosclerotic heart disease of native coronary artery without angina pectoris; E78.5 Hyperlipidemia, unspecified; F32.9 Major depressive disorder, single episode, unspecified; I73.9 Peripheral vascular disease, unspecified; Z86.73 Personal history of transient ischemic attack (TIA), and cerebral infarction without residual deficits; Z95.810 Presence of automatic (implantable) cardiac defibrillator; Z95.1 Presence of aortocoronary bypass graft; Z79.01 Long term (current) use of anticoagulants; Z20.828 Contact with and (suspected) exposure to other viral communicable diseases
CPT/HCPCS: J2997; Q9967

== ENCOUNTER 2021-05-13 07:30 | Day surgery (SDC) | payer MEDICARE, OTHER ==
[~2021-05-13 07:30] MED LIST changes: +ENTRESTO 24-261 TAB PO; +LEVOTHYROXIN25 MC1 PO; +LEVOTHYROXIN50 MCG PO; +OMNICEF300 MG PO; +PLAVIX75 MG PO; +SENIOR VITAM PO; +WARFARIN SODIU2.5 M1 PO; +ZPAK PO
[2021-05-13 11:48] VITALS: BP 129/62
== END 2021-05-13 11:02 | disposition home or self-care (01) ==
LOC: ORM 07:30
PROVIDERS: ATTEND Urology
PROC: 0TBB8ZX Excision of Bladder, Via Natural or Artificial Opening Endoscopic, Diagnostic (ICD-10-PCS; principal; 2021-05-13)
DX: N30.01 Acute cystitis with hematuria (principal); N30.21 Other chronic cystitis with hematuria; N20.0 Calculus of kidney; K46.9 Unspecified abdominal hernia without obstruction or gangrene; Z79.01 Long term (current) use of anticoagulants; Z79.02 Long term (current) use of antithrombotics/antiplatelets
CPT/HCPCS: J1956

== ENCOUNTER 2022-02-01 16:05 | Emergency (ER) | payer MEDICARE, OTHER ==
[2022-02-01] VITALS (15 sets, daily range): BP systolic 101–179; BP diastolic 67–96
[~2022-02-01] VITALS: Ht 177.8 cm; Wt 81.8 kg
[2022-02-01] MEDS ORDERED: HYDROCO/APAP1 TA9 PO (18:16)
[2022-02-01] MEDS ORDERED: ONDANSETRON4 MG PO (18:16)
== END 2022-02-01 19:27 | disposition home or self-care (01) ==
LOC: ED 16:05
PROC: 2W3RX1Z Immobilization of Left Lower Leg using Splint (ICD-10-PCS; principal; 2022-02-01)
DX: S82.842A Displaced bimalleolar fracture of left lower leg, initial encounter for closed fracture (principal); I11.0 Hypertensive heart disease with heart failure; I50.9 Heart failure, unspecified; I48.91 Unspecified atrial fibrillation; I73.9 Peripheral vascular disease, unspecified; E03.9 Hypothyroidism, unspecified; W01.0XXA Fall on same level from slipping, tripping and stumbling without subsequent striking against object, initial encounter; Y92.009 Unspecified place in unspecified non-institutional (private) residence as the place of occurrence of the external cause; Z95.5 Presence of coronary angioplasty implant and graft; Z95.0 Presence of cardiac pacemaker

== ENCOUNTER 2022-09-20 00:29 | Emergency (ER) | payer MEDICARE, OTHER ==
[2022-09-20] VITALS (13 sets, daily range): BP systolic 76–105; BP diastolic 37–50
[~2022-09-20] VITALS: Ht 177.8 cm; Wt 67.0 kg
[~2022-09-20 00:29] MED LIST changes: +HYDROCO/APAP1 TA9 PO; +ONDANSETRON4 MG PO
[2022-09-20 01:55] LABS: BASO% 0.6 % (0-3); IMMATURE GRANULOCYTES 1.2 % (0.0-5.0); LYMPH% 15.5 % (15-41); MEAN CORPUSCULAR HGB 31.7 pG CALC (26.0-32.0); MEAN CORPUSCULAR HGB CONC 31.3 g/dL CAL (32.0-36.0); MONO% 10.4 % (2-13); NEUT# 5.97 thou/uL (1.82-7.42); NEUT% 69.3 % (42-76); RED BLOOD COUNT 2.49 mill/uL (4.70-6.10); RED CELL DISTRI WIDTH 22.6 % (11.5-15.5)
[2022-09-20 02:05] LABS: ALBUMIN 3.6 g/dL (3.2-5.0); BILIRUBIN, TOTAL 0.7 mg/dL (0.2-1.3); CREATININE 2.1 mg/dL (0.7-1.3); HEMATOCRIT 25.2 % (39.0-50.0); HEMOGLOBIN 7.9 g/dl (14.0-18.0); MEAN CELL VOLUME 101.2 fL CALC (80.0-100.0); POTASSIUM 5.1 mmol/l (3.5-5.1)
[2022-09-20 02:14] LABS: INTERNATIONAL NORMALIZED RATIO 1.6 RATIO (0.7-1.3); PROTHROMBIN TIME 15.8 SECONDS (9.0-12.5)
[2022-09-20] MEDS ORDERED: LASIX 40 MG TAB40 MG PO (03:19)
[2022-09-20 05:57] LABS: URINE BILIRUBIN - DIPSTICK NEGATIVE (NEGATIVE); URINE BLOOD DIPSTICK NEGATIVE (NEGATIVE); URINE COLOR YELLOW; URINE GLUCOSE - DIPSTICK NEGATIVE (NEGATIVE); URINE PH 5.5 (4.5-8.0); URINE PROTEIN - DIPSTICK NEGATIVE (NEG-TRACE); URINE UROBILINOGEN - DIPSTICK 0.2 E.U./dL (0.2)
[2022-09-20 06:34] LABS: URINE LEUK ESTERASE MODERATE (NEGATIVE); URINE NITRITE - DIPSTICK NEGATIVE (Negative)
[2022-09-20 06:36] LABS: URINE KETONE NEGATIVE (NEGATIVE)
[2022-09-20 06:38] LABS: URINE BACTERIA MODERATE hpf; URINE EPITHELIAL CELLS MODERATE EPI/hpf (0-FEW); URINE MUCUS FEW hpf (NONE-FEW); URINE WBC 50-100 WBC/hpf (0-5)
[2022-09-20 06:39] LABS: URINE YEAST FEW hpf
== END 2022-09-20 06:41 ==
LOC: ED 00:29
PROVIDERS: Emergency Medicine
DX: R53.1 Weakness (principal); R42 Dizziness and giddiness; D64.9 Anemia, unspecified; R19.5 Other fecal abnormalities; I13.0 Hypertensive heart and chronic kidney disease with heart failure and stage 1 through stage 4 chronic kidney disease, or unspecified chronic kidney disease; I50.9 Heart failure, unspecified; N18.9 Chronic kidney disease, unspecified; I73.9 Peripheral vascular disease, unspecified; N17.9 Acute kidney failure, unspecified; I48.91 Unspecified atrial fibrillation; E03.9 Hypothyroidism, unspecified; Z89.611 Acquired absence of right leg above knee; T50.916A Underdosing of multiple unspecified drugs, medicaments and biological substances, initial encounter; Z91.128 Patient's intentional underdosing of medication regimen for other reason; Z79.01 Long term (current) use of anticoagulants

== ENCOUNTER 2022-11-25 10:46 | Emergency (ER) | payer MEDICARE, OTHER ==
[~2022-11-25] VITALS: Ht 177.8 cm; Wt 70.3 kg
[~2022-11-25 10:46] MED LIST changes: +LASIX 40 MG TAB40 MG PO
[2022-11-25 11:34] LABS: BASO% 0.8 % (0-3); EOS% 5.5 % (0-8); HEMATOCRIT 26.8 % (39.0-50.0); HEMOGLOBIN 8.2 g/dl (14.0-18.0); IMMATURE GRANULOCYTES 0.2 % (0.0-5.0); LYMPH% 15.4 % (15-41); MEAN CORPUSCULAR HGB 36.4 pG CALC (26.0-32.0); MEAN CORPUSCULAR HGB CONC 30.6 g/dL CAL (32.0-36.0); MONO% 9.8 % (2-13); NEUT# 3.36 thou/uL (1.82-7.42); NEUT% 68.3 % (42-76); RED BLOOD COUNT 2.25 mill/uL (4.70-6.10); RED CELL DISTRI WIDTH 18.5 % (11.5-15.5)
[2022-11-25 11:37] LABS: MEAN CELL VOLUME 119.1 fL CALC (80.0-100.0)
[2022-11-25 11:55] LABS: ALBUMIN 3.6 g/dL (3.2-5.0); ALKALINE PHOSPHATASE 61 u/l (38-126); ANION GAP 14 (6-22 (CALC)); BILIRUBIN, TOTAL 0.7 mg/dL (0.2-1.3); CARBON DIOXIDE 19 mmol/l (22-30); CHLORIDE 112 mmol/l (95-108); CREATININE 1.3 mg/dL (0.7-1.3); GFR FOR AFR.AMER. > 60 ML/MIN (>=60 (CALC)); GFR OTHER RACES 53 ML/MIN (>=60 (CALC)); POTASSIUM 4.7 mmol/l (3.5-5.1); SODIUM 140 mmol/l (137-146); TOTAL PROTEIN 6.4 g/dL (6.3-8.2)
[2022-11-25 12:02] LABS: BUN 58 mg/dL (8-23); BUN/CREATININE RATIO 45 (12-20 (CALC)); INTERNATIONAL NORMALIZED RATIO 1.4 RATIO (0.7-1.3); PROTHROMBIN TIME 13.3 SECONDS (9.0-12.5); SGOT/AST 45 u/l (19-48)
[2022-11-25 15:28] VITALS: BP 119/49
== END 2022-11-25 15:34 | disposition short-term general hospital (02) ==
LOC: ED 10:46
PROVIDERS: Family Medicine
DX: R19.5 Other fecal abnormalities (principal); J18.9 Pneumonia, unspecified organism; J91.8 Pleural effusion in other conditions classified elsewhere; I48.91 Unspecified atrial fibrillation; I11.0 Hypertensive heart disease with heart failure; I50.9 Heart failure, unspecified; I73.9 Peripheral vascular disease, unspecified; F32.A Depression, unspecified; Z95.810 Presence of automatic (implantable) cardiac defibrillator; Z95.1 Presence of aortocoronary bypass graft; E03.9 Hypothyroidism, unspecified; Z89.611 Acquired absence of right leg above knee
CPT/HCPCS: Q9967; S0164

== ENCOUNTER 2023-05-09 16:51 | Observation (INO) | payer MEDICARE, OTHER ==
[2023-05-09] VITALS (9 sets, daily range): BP systolic 111–136; BP diastolic 51–64
[~2023-05-09] VITALS: Ht 177.8 cm; Wt 68.0 kg
[~2023-05-09 16:51] MED LIST changes: +POT CHLORIDE10 ME5 PO
[2023-05-09] MEDS ORDERED: DIATRIZOATE MEGLUMINE & SODIUM 30 ML/BTL BTL PO SCH (17:05)
[2023-05-09] MEDS ORDERED: ONDANSETRON HCl 4 MG/2 ML SDV IV ONE (17:05)
[2023-05-09] MEDS ORDERED: Pantoprazole Sodium 40 MG VIAL (Protonix) IV ONE (17:05)
[2023-05-09] MEDS ORDERED: SODIUM CHLORIDE 0.9% 1,000 ML IV ONE (17:10)
[2023-05-09 17:49] LABS: BASO% 1.1 % (0-3); EOS% 4.1 % (0-8); HEMATOCRIT 30.5 % (39.0-50.0); HEMOGLOBIN 9.6 g/dl (14.0-18.0); IMMATURE GRANULOCYTES 0.2 % (0.0-5.0); LYMPH% 12.5 % (15-41); MEAN CELL VOLUME 117.8 fL CALC (80.0-100.0); MEAN CORPUSCULAR HGB 37.1 pG CALC (26.0-32.0); MEAN CORPUSCULAR HGB CONC 31.5 g/dL CAL (32.0-36.0); NEUT# 4.81 thou/uL (1.82-7.42); NEUT% 73.1 % (42-76); RED BLOOD COUNT 2.59 mill/uL (4.70-6.10); RED CELL DISTRI WIDTH 20.3 % (11.5-15.5)
[2023-05-09 17:58] LABS: ALBUMIN 4.1 g/dL (3.2-5.0); ALKALINE PHOSPHATASE 65 u/l (38-126); CARBON DIOXIDE 19 mmol/l (22-30); CHLORIDE 108 mmol/l (95-108); CREATININE 1.2 mg/dL (0.7-1.3); GFR FOR AFR.AMER. > 60 ML/MIN (>=60 (CALC)); GFR OTHER RACES 58 ML/MIN (>=60 (CALC)); SGOT/AST 47 u/l (19-48); SODIUM 139 mmol/l (137-146); TOTAL PROTEIN 7.1 g/dL (6.3-8.2)
[2023-05-09 18:01] LABS: ACT PARTIAL THROMBO TIME 42.5 SECONDS (20.0-32.5)
[2023-05-09 18:08] LABS: PROTHROMBIN TIME 42.4 SECONDS (9.0-12.5)
[2023-05-09 18:11] LABS: INTERNATIONAL NORMALIZED RATIO 4.8 RATIO (0.7-1.3)
[2023-05-09 18:14] LABS: ANION GAP 17 (6-22 (CALC)); BUN 57 mg/dL (8-23); BUN/CREATININE RATIO 48 (12-20 (CALC)); POTASSIUM 5.2 mmol/l (3.5-5.1)
[2023-05-09 18:46] LABS: LIPASE 42 u/l (23-300)
[2023-05-09] MEDS ORDERED: FAMOTIDINE 10MG/ML 2ML SDV IV ONE (23:25)
[2023-05-09] MEDS ORDERED: SODIUM CHLORIDE 0.45% 1,000 ML IV PRN (23:40)
[2023-05-09] MEDS ORDERED: ONDANSETRON HCl 4 MG/2 ML SDV IV PRN (23:40)
[2023-05-09] MEDS ORDERED: MAGNESIUM HYDROXIDE 30 ML UDC PO PRN (23:40)
[2023-05-09] MEDS ORDERED: ONDANSETRON 4 MG/TAB ODT PO PRN (23:40)
[2023-05-09] MEDS ORDERED: FAMOTIDINE 10MG/ML 2ML SDV IV PRN (23:40)
[2023-05-09] MEDS ORDERED: ALUM & MAG HYDROX-SIMETHICONE 30 ML PO PRN (23:40)
[2023-05-10] VITALS (26 sets, daily range): BP systolic 91–140; BP diastolic 40–83
[2023-05-10] MEDS ORDERED: JANTOVEN5 MG PO (01:57)
[2023-05-10 02:28] LABS: HEMATOCRIT 24.8 % (39.0-50.0); HEMOGLOBIN 7.8 g/dl (14.0-18.0)
[2023-05-10 03:50] LABS: BASO% 1.4 % (0-3); EOS% 3.8 % (0-8); HEMATOCRIT 25.9 % (39.0-50.0); HEMOGLOBIN 7.9 g/dl (14.0-18.0); LYMPH% 18.2 % (15-41); MEAN CELL VOLUME 122.2 fL CALC (80.0-100.0); MEAN CORPUSCULAR HGB 37.3 pG CALC (26.0-32.0); MEAN CORPUSCULAR HGB CONC 30.5 g/dL CAL (32.0-36.0); MONO% 14.4 % (2-13); NEUT# 3.07 thou/uL (1.82-7.42); NEUT% 62.2 % (42-76); RED BLOOD COUNT 2.12 mill/uL (4.70-6.10); RED CELL DISTRI WIDTH 20.5 % (11.5-15.5)
[2023-05-10 06:05] LABS: ALBUMIN 3.6 g/dL (3.2-5.0); ALKALINE PHOSPHATASE 58 u/l (38-126); ANION GAP 12 (6-22 (CALC)); BILIRUBIN, TOTAL 0.8 mg/dL (0.2-1.3); CARBON DIOXIDE 22 mmol/l (22-30); CHLORIDE 113 mmol/l (95-108); CREATININE 1.2 mg/dL (0.7-1.3); GFR FOR AFR.AMER. > 60 ML/MIN (>=60 (CALC)); GFR OTHER RACES 58 ML/MIN (>=60 (CALC)); POTASSIUM 4.5 mmol/l (3.5-5.1); SGOT/AST 44 u/l (19-48); SODIUM 142 mmol/l (137-146); TOTAL PROTEIN 6.1 g/dL (6.3-8.2)
[2023-05-10 06:07] LABS: BUN 78 mg/dL (8-23); BUN/CREATININE RATIO 65 (12-20 (CALC))
[2023-05-10 06:24] LABS: PROTHROMBIN TIME 42.7 SECONDS (9.0-12.5)
[2023-05-10 06:28] LABS: INTERNATIONAL NORMALIZED RATIO 4.8 RATIO (0.7-1.3)
[2023-05-10 07:11] LABS: EOS% 3.8 % (0-8); HEMATOCRIT 26.4 % (39.0-50.0); HEMOGLOBIN 8.1 g/dl (14.0-18.0); IMMATURE GRANULOCYTES 0.2 % (0.0-5.0); LYMPH% 13.4 % (15-41); MEAN CELL VOLUME 119.5 fL CALC (80.0-100.0); MEAN CORPUSCULAR HGB 36.7 pG CALC (26.0-32.0); MEAN CORPUSCULAR HGB CONC 30.7 g/dL CAL (32.0-36.0); MONO% 18.2 % (2-13); NEUT# 3.17 thou/uL (1.82-7.42); NEUT% 63.4 % (42-76); RED BLOOD COUNT 2.21 mill/uL (4.70-6.10); RED CELL DISTRI WIDTH 20.1 % (11.5-15.5)
[2023-05-10] MEDS ORDERED: SODIUM CHLORIDE 0.9% 500 ML IV PRN (08:50)
[2023-05-10] MEDS ORDERED: ONDANSETRON HCl 4 MG/2 ML SDV IV PRN (09:00)
[2023-05-10] MEDS ORDERED: PHYTONADIONE 10 MG in SODIUM CHLORIDE 0.9% 50 ML IV SCH (10:00)
[2023-05-10] MEDS ORDERED: PIPERACILLIN Sodium-Tazobactam 3.375 GM in SODIUM CHLORIDE 0.9% 100 ML IV SCH (12:00)
[2023-05-10] MEDS ORDERED: LASIX20 MG PO (12:41)
[2023-05-10] MEDS ORDERED: DOCUSATE CALCIUM 240 MG/CAP PO SCH (13:30)
[2023-05-10 13:55] LABS: EOS% 3.8 % (0-8); HEMATOCRIT 23.6 % (39.0-50.0); HEMOGLOBIN 7.3 g/dl (14.0-18.0); IMMATURE GRANULOCYTES 0.3 % (0.0-5.0); LYMPH% 11.7 % (15-41); MEAN CELL VOLUME 119.8 fL CALC (80.0-100.0); MEAN CORPUSCULAR HGB 37.1 pG CALC (26.0-32.0); MEAN CORPUSCULAR HGB CONC 30.9 g/dL CAL (32.0-36.0); MONO% 8.7 % (2-13); NEUT# 5.05 thou/uL (1.82-7.42); NEUT% 74.5 % (42-76); RED BLOOD COUNT 1.97 mill/uL (4.70-6.10); RED CELL DISTRI WIDTH 20.5 % (11.5-15.5)
[2023-05-10] MEDS ORDERED: Peg 3350-POTASSIUM CHLORIDE-So 4,000 ML BTL PO SCH (14:00)
[2023-05-10] MEDS ORDERED: FUROSEMIDE 40 MG/4 ML SDV IV SCH (14:00)
[2023-05-11] MEDS ORDERED: INFLUENZA VIRUS VAC SPLIT HIGH DOSE 2023/24 0.7 ML INJ IM SCH (09:00)
== END 2023-05-10 20:15 ==
LOC: ED 16:51 → ED-I 18:07 → ED 23:41 → ED-I 23:42 → MS2 05-10 09:45
PROVIDERS: Emergency Medicine; Nurse Practitioner Family; ADMIT Internal Medicine; ATTEND Internal Medicine
PROC: 30233K1 Transfusion of Nonautologous Frozen Plasma into Peripheral Vein, Percutaneous Approach (ICD-10-PCS; principal; 2023-05-10)
PROC: 30233N1 Transfusion of Nonautologous Red Blood Cells into Peripheral Vein, Percutaneous Approach (ICD-10-PCS; 2023-05-10)
DX: K92.0 Hematemesis (principal); T45.515A Adverse effect of anticoagulants, initial encounter; D68.32 Hemorrhagic disorder due to extrinsic circulating anticoagulants; K52.9 Noninfective gastroenteritis and colitis, unspecified; I11.0 Hypertensive heart disease with heart failure; I50.9 Heart failure, unspecified; E03.9 Hypothyroidism, unspecified; I73.9 Peripheral vascular disease, unspecified; I48.91 Unspecified atrial fibrillation; E78.5 Hyperlipidemia, unspecified; I25.10 Atherosclerotic heart disease of native coronary artery without angina pectoris; Z95.1 Presence of aortocoronary bypass graft; Z79.01 Long term (current) use of anticoagulants; Z89.611 Acquired absence of right leg above knee; Z95.810 Presence of automatic (implantable) cardiac defibrillator; Z20.822 Contact with and (suspected) exposure to COVID-19
CPT/HCPCS: P9016; Q9967; S0164

== ENCOUNTER 2023-12-11 16:48 | Inpatient (IN) | payer MEDICARE, OTHER ==
[~2023-12-11] VITALS: Ht 177.8 cm; Wt 72.7 kg
[2023-12-11] VITALS (29 sets, daily range): BP systolic 85–114; BP diastolic 31–51
[~2023-12-11 16:48] MED LIST changes: +JANTOVEN5 MG PO; +LASIX20 MG PO
[2023-12-11] MEDS ORDERED: SODIUM CHLORIDE 0.9% 500 ML BAG IV ONE (17:05)
[2023-12-11 17:16] LABS: BASO% 0.6 % (0-3); EOS% 2.3 % (0-8); IMMATURE GRANULOCYTES 0.7 % (0.0-5.0); LYMPH% 13.1 % (15-41); MEAN CORPUSCULAR HGB 40.4 pG CALC (26.0-32.0); MEAN CORPUSCULAR HGB CONC 29.9 g/dL CAL (32.0-36.0); MONO% 10.2 % (2-13); NEUT# 6.1 thou/uL (1.82-7.42); NEUT% 73.1 % (42-76); RED BLOOD COUNT 1.09 mill/uL (4.70-6.10); RED CELL DISTRI WIDTH 18.4 % (11.5-15.5)
[2023-12-11 17:24] LABS: ALBUMIN 3.2 g/dL (3.2-5.0); CREATININE 2.6 mg/dL (0.7-1.3); TOTAL PROTEIN 5.6 g/dL (6.3-8.2)
[2023-12-11 17:28] LABS: HEMATOCRIT 14.7 % (39.0-50.0); HEMOGLOBIN 4.4 g/dl (14.0-18.0); MEAN CELL VOLUME 134.9 fL CALC (80.0-100.0)
[2023-12-11] MEDS ORDERED: SODIUM CHLORIDE 0.9% 500 ML IV ONE ×2 (17:30→18:35)
[2023-12-11 17:31] LABS: BILIRUBIN, TOTAL 0.5 mg/dL (0.2-1.3); POTASSIUM 4.6 mmol/l (3.5-5.1)
[2023-12-11 17:40] LABS: PROTHROMBIN TIME 62.4 SECONDS (9.0-12.5)
[2023-12-11 17:41] LABS: INTERNATIONAL NORMALIZED RATIO 7.1 RATIO (0.7-1.3)
[2023-12-11 17:42] LABS: D-DIMER 0.65 mg/L (0.19-0.60)
[2023-12-11] MEDS ORDERED: ACETAMINOPHEN 325 MG/TAB PO PRN (18:15)
[2023-12-11] MEDS ORDERED: SODIUM CHLORIDE 0.9% 1,000 ML IV PRN (18:15)
[2023-12-11] MEDS ORDERED: MAGNESIUM HYDROXIDE 30 ML UDC PO PRN (18:15)
[2023-12-11] MEDS ORDERED: PHYTONADIONE 5 MG/TAB PO ONE (18:20)
[2023-12-11 20:31] LABS: URINE BILIRUBIN - DIPSTICK Negative (NEGATIVE); URINE BLOOD DIPSTICK Negative (NEGATIVE); URINE GLUCOSE - DIPSTICK Negative (NEGATIVE); URINE KETONE Negative (NEGATIVE); URINE NITRITE - DIPSTICK Negative (Negative); URINE PROTEIN - DIPSTICK Negative (NEG-TRACE); URINE UROBILINOGEN - DIPSTICK 0.2 E.U./dL (0.2)
[2023-12-11 20:35] LABS: URINE COLOR Yellow; URINE LEUK ESTERASE Moderate (NEGATIVE)
[2023-12-11 20:45] LABS: URINE BACTERIA MODERATE hpf; URINE RBC 0-2 RBC/hpf (0-5); URINE WBC 20-50 WBC/hpf (0-5)
[2023-12-11] MEDS ORDERED: CLARIFY DOSE PO PRN (20:50)
[2023-12-12] VITALS (17 sets, daily range): BP systolic 104–131; BP diastolic 40–59
[2023-12-12] MEDS ORDERED: FUROSEMIDE 40 MG/4 ML SDV IV ONE (05:00)
[2023-12-12 05:43] LABS: BASO% 0.5 % (0-3); EOS% 2.7 % (0-8); IMMATURE GRANULOCYTES 0.8 % (0.0-5.0); LYMPH% 10.7 % (15-41); MEAN CORPUSCULAR HGB 36.8 pG CALC (26.0-32.0); MEAN CORPUSCULAR HGB CONC 32.1 g/dL CAL (32.0-36.0); MONO% 9.9 % (2-13); NEUT# 5.91 thou/uL (1.82-7.42); NEUT% 75.4 % (42-76); RED BLOOD COUNT 1.82 mill/uL (4.70-6.10); RED CELL DISTRI WIDTH 24.8 % (11.5-15.5)
[2023-12-12 05:51] LABS: ALBUMIN 3.2 g/dL (3.2-5.0); CHOLESTEROL HDL RATIO 2.7 (<4.4 (CALC)); CREATININE 2.2 mg/dL (0.7-1.3); MAGNESIUM 2.5 mg/dL (1.6-2.3); POTASSIUM 4.2 mmol/l (3.5-5.1); TOTAL PROTEIN 5.8 g/dL (6.3-8.2)
[2023-12-12 05:52] LABS: HEMATOCRIT 20.9 % (39.0-50.0); HEMOGLOBIN 6.7 g/dl (14.0-18.0); MEAN CELL VOLUME 114.8 fL CALC (80.0-100.0)
[2023-12-12] MEDS ORDERED: Pantoprazole Sodium 40 MG VIAL (Protonix) IV SCH (06:00)
[2023-12-12 06:03] LABS: INTERNATIONAL NORMALIZED RATIO 3.7 RATIO (0.7-1.3); PROTHROMBIN TIME 33.1 SECONDS (9.0-12.5)
[2023-12-12] MEDS ORDERED: SODIUM CHLORIDE 0.9% 500 ML IV ONE (06:25)
[2023-12-12] MEDS ORDERED: cefTRIAXone SODIUM 2 GM in SODIUM CHLORIDE 0.9% 100 ML IV SCH (09:00)
[2023-12-12] MEDS ORDERED: SERTRALINE HCL 50 MG/TAB PO SCH (09:00)
[2023-12-12] MEDS ORDERED: FUROSEMIDE 40 MG/4 ML SDV IV SCH (13:00)
[2023-12-12 13:51] LABS: HEMATOCRIT 26.5 % (39.0-50.0); HEMOGLOBIN 8.2 g/dl (14.0-18.0)
[2023-12-12] MEDS ORDERED: ATORVASTATIN CALCIUM 10 MG/TAB PO SCH (21:00)
[2023-12-13] VITALS (7 sets, daily range): BP systolic 116–137; BP diastolic 54–61
[2023-12-13 08:17] LABS: BASO% 0.3 % (0-3); EOS% 3.5 % (0-8); HEMATOCRIT 27.7 % (39.0-50.0); HEMOGLOBIN 8.9 g/dl (14.0-18.0); IMMATURE GRANULOCYTES 0.6 % (0.0-5.0); LYMPH% 5.5 % (15-41); MEAN CELL VOLUME 109.5 fL CALC (80.0-100.0); MEAN CORPUSCULAR HGB 35.2 pG CALC (26.0-32.0); MEAN CORPUSCULAR HGB CONC 32.1 g/dL CAL (32.0-36.0); MONO% 7.4 % (2-13); NEUT# 8.95 thou/uL (1.82-7.42); NEUT% 82.7 % (42-76); RED BLOOD COUNT 2.53 mill/uL (4.70-6.10); RED CELL DISTRI WIDTH 25.4 % (11.5-15.5)
[2023-12-13 08:37] LABS: ALBUMIN 3.6 g/dL (3.2-5.0); CARBON DIOXIDE 22 mmol/l (22-30); CHLORIDE 114 mmol/l (95-108); CREATININE 1.6 mg/dL (0.7-1.3); ESTIMATED GFR 42 ML/MIN (>=90 (CALC)); POTASSIUM 3.7 mmol/l (3.5-5.1); SODIUM 142 mmol/l (137-146)
[2023-12-13 08:38] LABS: ALBUMIN 3.6 g/dL (3.2-5.0); BILIRUBIN, TOTAL 0.9 mg/dL (0.2-1.3); CREATININE 1.6 mg/dL (0.7-1.3); MAGNESIUM 2.3 mg/dL (1.6-2.3); POTASSIUM 3.6 mmol/l (3.5-5.1); TOTAL PROTEIN 6.1 g/dL (6.3-8.2)
[2023-12-13 08:44] LABS: INTERNATIONAL NORMALIZED RATIO 2.3 RATIO (0.7-1.3); PROTHROMBIN TIME 21.2 SECONDS (9.0-12.5)
[2023-12-13 08:45] LABS: BUN 75 mg/dL (8-23)
[2023-12-13] MEDS ORDERED: FUROSEMIDE 40 MG/4 ML SDV IV SCH (09:00)
[2023-12-13] MEDS ORDERED: OMNICEF300 MG PO (09:50)
[2023-12-13] MEDS ORDERED: WARFARIN SODIU2.5 M1 PO (09:53)
== END 2023-12-13 14:23 | disposition home or self-care (01) | DRG 812 ==
LOC: ED 16:48 → ED-I 17:09 → ED 17:09 → ED-I 17:20 → ED 18:13 → MS2 18:14
PROVIDERS: Family Medicine; Internal Medicine Nephrology; ADMIT Student in an Organized Health Care Education/Training Program; ATTEND Student in an Organized Health Care Education/Training Program
PROC: 30233N1 Transfusion of Nonautologous Red Blood Cells into Peripheral Vein, Percutaneous Approach (ICD-10-PCS; principal; 2023-12-11)
PROC: 30233N1 Transfusion of Nonautologous Red Blood Cells into Peripheral Vein, Percutaneous Approach (ICD-10-PCS; 2023-12-11)
PROC: 30233K1 Transfusion of Nonautologous Frozen Plasma into Peripheral Vein, Percutaneous Approach (ICD-10-PCS; 2023-12-12)
PROC: 30233N1 Transfusion of Nonautologous Red Blood Cells into Peripheral Vein, Percutaneous Approach (ICD-10-PCS; 2023-12-12)
DX: D64.9 Anemia, unspecified (principal); I13.0 Hypertensive heart and chronic kidney disease with heart failure and stage 1 through stage 4 chronic kidney disease, or unspecified chronic kidney disease; N17.9 Acute kidney failure, unspecified; N30.00 Acute cystitis without hematuria; E87.20 Acidosis, unspecified; I25.10 Atherosclerotic heart disease of native coronary artery without angina pectoris; I95.9 Hypotension, unspecified; I50.9 Heart failure, unspecified; R19.5 Other fecal abnormalities; B96.1 Klebsiella pneumoniae [K. pneumoniae] as the cause of diseases classified elsewhere; N18.32 Chronic kidney disease, stage 3b; E86.9 Volume depletion, unspecified; I48.91 Unspecified atrial fibrillation; E78.5 Hyperlipidemia, unspecified; E03.9 Hypothyroidism, unspecified; I73.9 Peripheral vascular disease, unspecified; T45.515A Adverse effect of anticoagulants, initial encounter; R79.1 Abnormal coagulation profile; Z95.0 Presence of cardiac pacemaker; Z79.02 Long term (current) use of antithrombotics/antiplatelets; Z89.511 Acquired absence of right leg below knee; Z95.1 Presence of aortocoronary bypass graft; Z79.01 Long term (current) use of anticoagulants; Z95.3 Presence of xenogenic heart valve; Z87.11 Personal history of peptic ulcer disease; Z99.3 Dependence on wheelchair
CPT/HCPCS: J2470; P9016

== ENCOUNTER 2023-12-23 07:47 | Emergency (ER) | payer MEDICARE, OTHER ==
[2023-12-23] VITALS (12 sets, daily range): BP systolic 93–127; BP diastolic 43–57
[~2023-12-23] VITALS: Ht 177.8 cm; Wt 63.5 kg
[2023-12-23] MEDS ORDERED: ONDANSETRON HCl 4 MG/2 ML SDV IV ONE (08:05)
[2023-12-23] MEDS ORDERED: Pantoprazole Sodium 40 MG VIAL (Protonix) IV ONE ×2 (08:05→09:30)
[2023-12-23 08:52] LABS: BASO% 1.2 % (0-3); EOS% 2.5 % (0-8); IMMATURE GRANULOCYTES 0.4 % (0.0-5.0); LYMPH% 16.9 % (15-41); MEAN CORPUSCULAR HGB 36.3 pG CALC (26.0-32.0); MEAN CORPUSCULAR HGB CONC 30.7 g/dL CAL (32.0-36.0); MONO% 9.6 % (2-13); NEUT# 6.71 thou/uL (1.82-7.42); NEUT% 69.4 % (42-76); RED BLOOD COUNT 1.6 mill/uL (4.70-6.10); RED CELL DISTRI WIDTH 23.6 % (11.5-15.5)
[2023-12-23 09:02] LABS: HEMOGLOBIN 5.8 g/dl (14.0-18.0); MEAN CELL VOLUME 118.1 fL CALC (80.0-100.0)
[2023-12-23 09:03] LABS: HEMATOCRIT 18.9 % (39.0-50.0)
[2023-12-23 09:07] LABS: ALBUMIN 3.6 g/dL (3.2-5.0); CREATININE 1.8 mg/dL (0.7-1.3); TOTAL PROTEIN 6.3 g/dL (6.3-8.2)
[2023-12-23 09:10] LABS: ACT PARTIAL THROMBO TIME 30.1 SECONDS (20.0-32.5); INTERNATIONAL NORMALIZED RATIO 2.5 RATIO (0.7-1.3)
[2023-12-23 09:16] LABS: PROTHROMBIN TIME 22.7 SECONDS (9.0-12.5)
[2023-12-23 09:17] LABS: POTASSIUM 5.9 mmol/l (3.5-5.1)
[2023-12-23] MEDS ORDERED: SODIUM CHLORIDE 0.9% 500 ML IV ONE (09:25)
[2023-12-23 10:17] LABS: BILIRUBIN, TOTAL 0.9 mg/dL (0.2-1.3); CREATININE 1.8 mg/dL (0.7-1.3); TOTAL PROTEIN 5.3 g/dL (6.3-8.2)
[2023-12-23 10:19] LABS: POTASSIUM 5.5 mmol/l (3.5-5.1)
== END 2023-12-23 10:41 | disposition short-term general hospital (02) ==
LOC: ED 07:47
PROVIDERS: Emergency Medicine
PROC: 30233N1 Transfusion of Nonautologous Red Blood Cells into Peripheral Vein, Percutaneous Approach (ICD-10-PCS; principal; 2023-12-23)
DX: K92.0 Hematemesis (principal); D64.9 Anemia, unspecified; Z86.73 Personal history of transient ischemic attack (TIA), and cerebral infarction without residual deficits; Z86.718 Personal history of other venous thrombosis and embolism; Z87.11 Personal history of peptic ulcer disease; Z95.1 Presence of aortocoronary bypass graft; Z89.511 Acquired absence of right leg below knee; Z99.3 Dependence on wheelchair; Z95.0 Presence of cardiac pacemaker
CPT/HCPCS: J2470; P9016